=== PATIENT | male | born 1945 | race Caucasian/White ===

== ENCOUNTER → 2023-11-07 06:55 | Outpatient (REF) | payer MEDICARE, OTHER, SELFPAY ==
[2023-11-07] MEDS: LEXISCAN 0.400000000000000022 MG IV (08:44)
== END ==
LOC: RCS 06:55
PROVIDERS: ATTENDING PHYSICIAN Internal Medicine Cardiovascular Disease; FAMILY PHYSICIAN Family Medicine
DX: Z76.89 Persons encountering health services in other specified circumstances (principal); I25.10 Atherosclerotic heart disease of native coronary artery without angina pectoris; I25.84 Coronary atherosclerosis due to calcified coronary lesion; I10 Essential (primary) hypertension; R94.31 Abnormal electrocardiogram [ECG] [EKG]
CPT/HCPCS: 78452; 93017; A9500; J2785

== ENCOUNTER → 2023-11-08 10:39 | Outpatient (REF) | payer MEDICARE, OTHER, SELFPAY | LOC: RAD 10:39 | PROVIDERS: ATTENDING PHYSICIAN Specialist; FAMILY PHYSICIAN Family Medicine | DX: N20.0 Calculus of kidney (principal) | CPT/HCPCS: 76770 ==

== ENCOUNTER → 2023-12-02 13:38 | Outpatient (REF) | payer MEDICARE, OTHER, SELFPAY | LOC: DHCBC MAIN 13:38 | PROVIDERS: ATTENDING PHYSICIAN Internal Medicine Cardiovascular Disease; FAMILY PHYSICIAN Family Medicine | DX: Z76.89 Persons encountering health services in other specified circumstances (principal); I25.10 Atherosclerotic heart disease of native coronary artery without angina pectoris; I25.84 Coronary atherosclerosis due to calcified coronary lesion; I35.9 Nonrheumatic aortic valve disorder, unspecified; I10 Essential (primary) hypertension | CPT/HCPCS: 93306 ==

== ENCOUNTER 2025-06-07 16:13 | Inpatient (IN) | payer MEDICARE, OTHER, SELFPAY ==
[2025-06-06 13:47] VITALS: BP 166/85
--- NOTE | 2025-06-06 14:19 | ED.GENMED ---
History of Present Illness
<Marlo Neal Jr., PA-C - Last Filed: 06/06/25 19:02>
General
Chief Complaint: Musculo-Skeletal Complaint
Source: patient
Exam Limitations: none
Time Seen by Provider: 06/06/25 13:55
Nursing documentation reviewed up to this point in time: agreed with
History of Present Illness
History of Present Illness:
79-year-old male presenting to the emergency department today with concerns of right knee pain after twisting his knee walking just prior to arrival. Unable to ambulate afterward and came in by EMS. Denies any numbness weakness redness or warmth.
No fevers. Does have chronic knee pain.
Past History
<Marlo Neal Jr., PA-C - Last Filed: 06/06/25 19:02>
Past History
ED Past Medical History: Other (kidney stones); Negative HTN
ED Past Surgical History: Cholecystectomy
Social History
Tobacco: Former smoker
Alcohol: None
Drug: None
Personal:
Living: with family
Employment: Employed
Family History
Family History: Other
Review of Systems
<Marlo Neal Jr., PA-C - Last Filed: 06/06/25 19:02>
Review of Systems
Allergies reviewed?: Yes
All Other Systems: ROS reviewed and negative except as documented in HPI and ROS
Phy Exam
<Marlo Neal Jr., PA-C - Last Filed: 06/06/25 19:02>
Physical Exam
Physical Exam:
GENERAL: Alert , in no apparent distress
EYE: pupils equal and reactive
NECK: Supple, no significant adenopathy.
ENT: o/p clr, mmm.
CARDIAC: Regular rate and rhythm .
LUNGS: Clear breath sounds bilaterally, no acute respiratory distress, no wheezes/rales/rhonchi
ABDOMEN: Soft, without focal tenderness, no r/g, no cvat
NEUROLOGICAL: Alert and oriented, no focal neuro deficits
SKIN: Warm and dry, skin intact.
MUSCULOSKELETAL: Edema surrounding the right knee mainly to the suprapatellar region no redness or warmth does have good range of motion in general. No specific joint laxity.
PSYCH: Normal and appropriate interaction.
Course
<Marlo Neal Jr., PA-C - Last Filed: 06/06/25 19:02>
Orders/Labs/Results
Orders:
Orders
06/06/25 Lunch
Low Lactose
At Your Request: Full Participation
06/06/25 13:50
Knee, Right 4 or More Views [CR Knee- Right 4 Or More View*] Urgent
Comment:
Reason For Exam: pain
06/06/25 15:20
Knee Immobilizer Right-Treatme ONCE
Pt Eval And Treat Urgent
Activity Level: Ambulate
06/06/25 16:01
Case Management Consult ONCE
Case Management Consult: Discharge Planning
06/06/25 18:19
BMP [Basic Metabolic Panel] Urgent
CBC/With Diff [Complete Blood Count/With Diff] Routine
Abnormal Lab Results
06/06/25
18:19
RBC 4.60 L 10^6/uL
(4.70-6.10)
MCV 95.4 H fL
(80.0-94.0)
MCH 32.8 H pg
(27.0-31.0)
Absolute Neuts (auto) 8.1 H 10^3/uL
(1.4-6.5)
Absolute Lymphs (auto) 1.0 L 10^3/uL
(1.2-3.4)
Absolute Monos (auto) 0.8 H 10^3/uL
(0.1-0.6)
Neutrophils % 79.7 H %
(42.2-75.2)
Lymphocytes % 9.8 L %
(20.5-51.1)
BUN 25 H mg/dl
(9-20)
Glucose 102 H mg/dl
(70-99)
06/06/25 18:19
06/06/25 18:19
Vital Signs
Initial and Last Documented VS:
Initial Vital Signs
Temp Pulse Resp BP Pulse Ox
98.9 F 65 15 166/85 98
06/06/25 13:47 06/06/25 13:47 06/06/25 13:47 06/06/25 13:47 06/06/25 13:47
Last Documented Vital Signs
Temp Pulse Resp BP Pulse Ox
98.9 F 66 16 158/87 98
06/06/25 13:47 06/06/25 16:17 06/06/25 16:17 06/06/25 16:17 06/06/25 16:17
<Samira Collado MD - Last Filed: 06/06/25 18:36>
Orders/Labs/Results
Orders:
Orders
06/06/25 Lunch
Low Lactose
At Your Request: Full Participation
06/06/25 13:50
Knee, Right 4 or More Views [CR Knee- Right 4 Or More View*] Urgent
Comment:
Reason For Exam: pain
06/06/25 15:20
Knee Immobilizer Right-Treatme ONCE
Pt Eval And Treat Urgent
Activity Level: Ambulate
06/06/25 16:01
Case Management Consult ONCE
Case Management Consult: Discharge Planning
06/06/25 18:19
BMP [Basic Metabolic Panel] Urgent
CBC/With Diff [Complete Blood Count/With Diff] Routine
Abnormal Lab Results
06/06/25
18:19
RBC 4.60 L 10^6/uL
(4.70-6.10)
MCV 95.4 H fL
(80.0-94.0)
MCH 32.8 H pg
(27.0-31.0)
Absolute Neuts (auto) 8.1 H 10^3/uL
(1.4-6.5)
Absolute Lymphs (auto) 1.0 L 10^3/uL
(1.2-3.4)
Absolute Monos (auto) 0.8 H 10^3/uL
(0.1-0.6)
Neutrophils % 79.7 H %
(42.2-75.2)
Lymphocytes % 9.8 L %
(20.5-51.1)
BUN 25 H mg/dl
(9-20)
Glucose 102 H mg/dl
(70-99)
06/06/25 18:19
06/06/25 18:19
Vital Signs
Initial and Last Documented VS:
Initial Vital Signs
Temp Pulse Resp BP Pulse Ox
98.9 F 65 15 166/85 98
06/06/25 13:47 06/06/25 13:47 06/06/25 13:47 06/06/25 13:47 06/06/25 13:47
Last Documented Vital Signs
Temp Pulse Resp BP Pulse Ox
98.9 F 66 16 158/87 98
06/06/25 13:47 06/06/25 16:17 06/06/25 16:17 06/06/25 16:17 06/06/25 16:17
<Marlo Neal Jr., PA-C - Last Filed: 06/06/25 19:02>
MDM/Problems Addressed
MDM/Problems Addressed:
79-year-old male presenting to the emergency department with concerns of right knee pain after tripping and twisting his knee. Denies any trauma or falling afterward. Unable to ambulate since. Does have chronic knee pain otherwise. X-ray without
signs of fracture. Patient unable to ambulate seen by physical therapy who recommend potential placement.. Then patient seen by case management that was placed today requesting admission to monitored until potential placement tomorrow.
<Marlo Neal Jr., PA-C - Last Filed: 06/06/25 19:02>
*Pulse Oximetry
SaO2: 98
Oxygen Mode of Delivery: Room air
Patient hypoxic: no (98)
*Critical Care Note
Total Time (30-74mins, 75-104mins- exclusive of procedures): Not Applicable
ED Attending Note
<Marlo Neal Jr., PA-C - Last Filed: 06/06/25 19:02>
-
Portions of this chart may have been created with voice recognition software.� Occasional wrong word or��sound alike� substitutions may have occurred due to the inherent limitations of voice recognition software.
<Samira Collado MD - Last Filed: 06/06/25 18:36>
ED Attending Note
Patient seen and examined by attending physician: Yes
I performed the substantive portion of visit, reviewed & personally made and approve the management plan that is documented in note by myself or MAE.: Yes
ED Attending Note:
79-year-old male who presents to the emergency department with right knee pain after a trip and fall. X-ray here negative for fracture. Knee immobilizer placed, patient able to stand but has difficulty walking. Discussion with patient's neighbor
who brought him here, she states that since his 3 months ago he is having difficulty managing at home. Next of kin is in [place], his daughter. He has lost weight, has gone a few days without showering at a time, and leans on her
for assistance with test such as writing checks. She is concerned about his ability to manage at home alone. Patient seen by case management, can be placed but not until tomorrow, therefore will be an observation candidate overnight.
Discharge Plan
Departure
Patient Disposition: Home (Routine Discharge)
Date of Disposition: 06/06/25
Time of Disposition: 19:01
Patient with high blood pressure during this ER visit?: No
Condition: Good
Covid-19: Not Applicable
Discharge Problem:
Knee sprain, Ambulatory dysfunction
Prescriptions:
No Action
tamsulosin 0.4 mg Capsule
0.8 mg PO DAILY Qty: 30 1RF
amlodipine 5 mg Tablet
5 mg PO DAILY Qty: 30 1RF
Referrals:
Sanjeev Sapp, DO [Family Provider, Family Practice]
Interventions
Interventions:
*Risk Screen - Suicide Last Done: 06/06/25 13:47
*General Assessment Last Done: 06/06/25 13:47
*Neglect/Abuse Screening Last Done: 06/06/25 13:47
*ED- Fall Risk Assessment Last Done: 06/06/25 13:47
*ED COVID-19 Vaccine History Last Done: 06/06/25 13:47
*ED Influenza Vaccine History Last Done: 06/06/25 13:47
ED-Musculoskeletal Assessment Last Done: 06/06/25 15:37
Discharge Date and Time
Print Language: BELARUSIAN
[2025-06-06 16:17] VITALS: BP 158/87
--- NOTE | 2025-06-06 16:22 | CM ---
Addendum entered by Ileana Gr 06/06/25 16:29:
Patient is [facility] and would need hospitalist note with review by [facility] prior to acceptance. [place] is not participating facility at this time. Options are [facility] and [place]. CM will review with patient and confirm choice to send
referrals and work with [facility] for auth.
Original Note:
Patient seen in ED. Patient lives alone, recently . Patient lives in apartment with approx 24 steps to enter. Patient helps with the care of the building so does more steps than that. Patient is looking for resources to support at a
friends home but no friend has less than at least one flight of stairs. Patient did not want to call family as they are to far away was willing to have CM send referral to [place] pending review. CM will continue to follow for discharge planning
needs.
Plan; SNF; pending bed ability and coverage by insurance.
--- NOTE | 2025-06-06 16:48 | EDCM ---
Spoke with patient regarding [employer] waiver program . Pt not sure if he wants to go to one of 3 [facility] SNFs offered : [place], [facility] or [facility]. He wants to go to [place] which is close to him. Pt not able to go to one of his kids
for discharge. Reviewed [facility] with patient but patent declined to sign the form at this time. Spoke with his care team. Plan to keep him under OBS and refer to hospitalist service for follow up. CM to follow up for dcp needs
--- NOTE | 2025-06-06 18:15 | HPS.HSE ---
Family Physician
-
Family Physician: Sanjeev Sapp
Chief Complaint
-
Right knee pain
History of Present Illness
79M BPH HTN Knee osteoarthritis hx steroid injection 6 wks ago here for Acute on chronic knee pain with severe ambulatory dysfunction. Baseline ambulatory without need for assist device. 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 He felt
his right knee suddenly give out while walking on steps. Denied fall or trauma. Unable to ambulate or stand following event, prompting ed evaluation. Labs Vitals wnl unremarkable. 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
dislocation. PT eval recommended SNF rehab.
Medical History
Past Medical History
Past Medical History: Reports Other (as above)
Past Surgical History: Reports Other (as above)
Social History
Tobacco: Non-smoker
Alcohol: None
Drug: None
Personal: ( February 2025)
Living: Alone
Employment: Employed
Family History
Family History: Not pertinent (reviewed)
Allergies / Home Medications
Allergies reflects when Allergies were last updated in [employer].
Home Medications with original date entered in [employer]
Allergy/Medication List:
Allergies
Allergy/AdvReac Type Severity Reaction Status Date / Time
acetaminophen (From Percocet) Allergy Swelling Verified 06/06/25 13:47
lactose (Lactose) Allergy Unknown Verified 06/06/25 13:47
oxycodone HCl (From Percocet) Allergy Swelling Verified 06/06/25 13:47
Home Medications
amlodipine 5 mg tablet 5 mg PO DAILY #30 tabs 08/26/22
tamsulosin 0.4 mg capsule 0.8 mg (2 x 0.4 mg) PO DAILY #30 caps 08/26/22
Review of Systems
-
A 12 point ROS was completed and negative except as noted: Yes
Constitutional: Reports Other (as below)
Physical Exam
Vital Signs
Vital Signs
Temp Pulse Resp BP Pulse Ox
98.9 F 66 16 158/87 98
06/06/25 13:47 06/06/25 16:17 06/06/25 16:17 06/06/25 16:17 06/06/25 16:17
Physical Exam
General: Other (as below)
Impression/Plan
-
ROS
General: Denies fever chills night sweats unexpected weight loss
Neuro: Denies seizure shaking loss of consciousness dizziness vertigo
Psych: denies depression hallucinations confusion manic episodes
Endocrine: Denies polyuria polydipsia polyphagia heat/cold intolerance
HEENT: Denies blindness visual disturbances epistaxis
Pulmonary: denies coughing hemoptysis sneezing sob dyspnea on exertion
Cardiovascular: denies chest pain palpitations leg swelling
Hematology: denies signs symptoms of anemia easy bruising/bleeding
Gastrointestinal: denies nausea vomiting diarrhea constipation hematemesis hematochezia melena
Genito-Urinary: denies retention incontinence dysuria
Musculoskeletal: reports chronic joint pain knees b/l, severe right knee pain
Dermatology: denies rash laceration bruising
Physical Exam
General: No pallor, cyanosis, or jaundice.
HEENT: Throat clear. PERRLA Normocephalic atraumatic
NECK: Supple. No JVD Carotid Bruits
RESPIRATORY: Lungs clear to auscultation. No crackles wheezes stridor
CVS: S1, S2 normal. RRR. No murmur, rub or gallop.
ABDOMEN: Soft, non-tender. No distension. BS+/normal.
EXTREMITIES: No peripheral cyanosis or edema. Right knee immobilizer/brace in place
BLOWER BLAST FURNACE: AOx3. No focal deficits.
IMPRESSION:
79M BPH HTN Knee osteoarthritis hx steroid injection 6 wks ago here for Acute on chronic knee pain with severe ambulatory dysfunction. Baseline ambulatory without need for assist device. 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 He felt
his right knee suddenly give out while walking on steps. Denied fall or trauma. Unable to ambulate or stand following event, prompting ed evaluation. Labs Vitals wnl unremarkable. 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
dislocation. PT esther recommended SNF rehab.
PLAN:
Acute on Chronic Right Knee Pain w/ associate severe ambulatory dysfunction
-Obs med/surg
-PT eval appreciated SNF rehab
-case mgmt appreciated
-pain control prn Tylenol Tramadol
-maintain right knee brace/immobilizer
-fall precautions
- medically stable for discharge SNF rehab pending placement
Lactose intolerance
-low lactose diet
HTN
cont home Amlodipine w/ holding parameters
BPH
cont Flomax
DVT ppx Heparin
Full Code
I spent a total of 56 minutes with the patient or on the floor. More than 50% of this time involved counseling and coordination of care.
[2025-06-06 18:31] LABS: Hematocrit 43.9 % (39.0-52.0); Hemoglobin 15.1 g/dL (13.0-18.0); Mean Corp Hgb Conc. 34.4 g/dL (33.0-37.0); Mean Corpuscular Volume 95.4 fL (80.0-94.0); Nucleated Red Blood Cells % 0 % (-); Platelet Count 221 10^3/uL (130-400); Red Cell Dist. Width 13.3 % (11.5-14.5)
[2025-06-06 18:53] LABS: Blood Urea Nitrogen 25 mg/dl (9-20); Calcium 9.4 mg/dl (8.4-10.2); Carbon Dioxide 24 mmol/L (22-30); Chloride 107 mmol/L (98-107); Glucose 102 mg/dl (70-99); Sodium 137 mmol/L (135-145); eGFR 55.53
[2025-06-06 20:00] VITALS: BMI 26.0
[2025-06-06 20:08] VITALS: BP 174/80
[2025-06-06 20:24] VITALS: BP 161/93
[2025-06-06] MEDS: FLOMAX 0.8 MG PO (23:12)
[2025-06-06] MEDS: HEPARIN 5000 UNITS SC (23:13)
[2025-06-06 23:47] VITALS: BP 146/82
[2025-06-07 05:39] LABS: Hematocrit 43.5 % (39.0-52.0); Hemoglobin 14.2 g/dL (13.0-18.0); Mean Corp Hgb Conc. 32.6 g/dL (33.0-37.0); Mean Corpuscular Volume 99.8 fL (80.0-94.0); Platelet Count 186 10^3/uL (130-400); Red Cell Dist. Width 13.4 % (11.5-14.5)
[2025-06-07 06:10] LABS: Blood Urea Nitrogen 21 mg/dl (9-20); Calcium 9.3 mg/dl (8.4-10.2); Carbon Dioxide 27 mmol/L (22-30); Chloride 106 mmol/L (98-107); Estimated Creatinine Clearance 51 ml/min; Glucose 92 mg/dl (70-99); Magnesium 2.0 mg/dl (1.6-2.3); Potassium 4.1 mmol/L (3.5-5.1); Sodium 138 mmol/L (135-145); eGFR 55.53
[2025-06-07 07:24] VITALS: BP 141/82
--- NOTE | 2025-06-07 07:58 | W.PN.HOSP.TC ---
Today's Communication/Plan
-
check CT right knee
pain control, ice, and elevate
Physical Therapy
Assessment / Plan
Assessment / Plan
Physical Exam
General: No pallor, cyanosis, or jaundice.
HEENT: Throat clear. PERRLA Normocephalic atraumatic
NECK: Supple. No JVD Carotid Bruits
RESPIRATORY: Lungs clear to auscultation. No crackles wheezes stridor
CVS: S1, S2 normal. RRR. No murmur, rub or gallop.
ABDOMEN: Soft, non-tender. No distension. BS+/normal.
EXTREMITIES: No peripheral cyanosis or edema. Right knee immobilizer/brace in place. Right knee swollen tender
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 No focal deficits.
IMPRESSION:
79M BPH HTN Knee osteoarthritis hx steroid injection 6 wks ago here for Acute on chronic knee pain with severe ambulatory dysfunction. Baseline ambulatory without need for assist device. 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 He felt
his right knee suddenly give out while walking on steps. Denied fall or trauma. Unable to ambulate or stand following event, prompting ed evaluation. Labs Vitals wnl unremarkable. 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
dislocation. PT eval recommended SNF rehab.
PLAN:
Acute on Chronic Right Knee Pain w/ associate severe ambulatory dysfunction
-med/surg
-severe ambulatory dysfunction requiring 1 person assist w/ walker
-PT eval appreciated SNF rehab
-case mgmt appreciated
-pain control standing Tylenol prn Tramadol
-ice and elevate when at rest
-maintain right knee brace/immobilizer
-fall precautions
-check CT right knee
Lactose intolerance
-low lactose diet
HTN
cont home Amlodipine w/ holding parameters
BPH
cont Flomax
DVT ppx Heparin
Full Code
Discussed with patient and patient's daughter Consuelo
I spent a total of 47 minutes with the patient or on the floor. More than 50% of this time involved counseling and coordination of care.
Anticipated Discharge: 24 - 48 hours
Subjective/Interval History
-
Date of Service: June 07, 2025
No acute distress resting comfortably in bed. No pain at rest but Right knee more swollen tender compared to yesterday. Ambulation significantly impaired requiring 1 person assist with walker.
Objective Data
-
Labs:
Laboratory Results
06/07/25
05:04
WBC 8.4
Hgb 14.2
Hct 43.5
Plt Count 186
Sodium 138
Potassium 4.1
Chloride 106
Carbon Dioxide 27
BUN 21 H
Creatinine 1.3
Glucose 92
Calcium 9.3
Vital Signs:
Vital Signs
Temp Pulse Resp BP Pulse Ox
98.1 F 72 16 141/82 98
06/07/25 07:24 06/07/25 07:24 06/07/25 07:24 06/07/25 07:24 06/07/25 07:24
I&O
06/06/25 06/07/25 06/08/25
06:59 06:59 06:59
Intake Total 360 / 360
Output Total 850 / 850
Balance -490 / -490
[2025-06-07] MEDS: NORVASC 5 MG PO (08:51)
[2025-06-07] MEDS: HEPARIN 5000 UNITS SC ×2 (08:51→16:01)
--- NOTE | 2025-06-07 13:21 | CM ---
Addendum entered by Andie Reynolds 06/07/25 15:55:
Pt and daughter plan to appeal with [employer].
Addendum entered by Andie Reynolds 06/07/25 15:29:
Aviva reviewed the case with her team again, however SNF is still denied. Pt is agreeable to home care services and has [facility]. Referral sent via [facility].
Original Note:
AYESHA met with Gerry and his friend at bedside. Gerry is agreeable to SNF at discharge; [facility] waiver being utilized for SNF. Referrals sent to [facility], [facility] and [facility].
Call received from Aviva, Lexi Casemanager, who advised that SNF has been denied. I asked Aviva to review with her team that Gerry is recently , has 2 full flights of stairs to get to his home; and would benefit from SNF.
Plan: Await updates from [facility] liaison.
[2025-06-07 15:39] VITALS: BP 136/79
[2025-06-07] MEDS: TYLENOL 650 MG PO ×2 (16:00→22:18)
[2025-06-07] MEDS: TYLENOL PO (16:14)
[2025-06-07 16:49] VITALS: BP 137/81; PULSE 72
[2025-06-07] MEDS: FLOMAX 0.8 MG PO (22:18)
[2025-06-07 23:45] VITALS: BP 116/83
[2025-06-08] MEDS: HEPARIN SC (01:30)
[2025-06-08] MEDS: TYLENOL PO ×3 (01:30→14:01)
[2025-06-08 05:56] LABS: Hematocrit 42.2 % (39.0-52.0); Hemoglobin 13.9 g/dL (13.0-18.0); Mean Corp Hgb Conc. 32.9 g/dL (33.0-37.0); Mean Corpuscular Volume 95.9 fL (80.0-94.0); Platelet Count 208 10^3/uL (130-400); Red Cell Dist. Width 13.4 % (11.5-14.5)
[2025-06-08 06:17] LABS: Blood Urea Nitrogen 26 mg/dl (9-20); Calcium 9.0 mg/dl (8.4-10.2); Carbon Dioxide 26 mmol/L (22-30); Chloride 104 mmol/L (98-107); Estimated Creatinine Clearance 48 ml/min; Glucose 138 mg/dl (70-99); Magnesium 2.2 mg/dl (1.6-2.3); Potassium 3.8 mmol/L (3.5-5.1); Sodium 137 mmol/L (135-145); eGFR 50.81
--- NOTE | 2025-06-08 07:45 | W.PN.HOSP.TC ---
Today's Communication/Plan
-
Check Right Knee MRI
pain control
PT/OT
Abd Binder for Hernia
Assessment / Plan
Assessment / Plan
Physical Exam
General: No pallor, cyanosis, or jaundice.
HEENT: Throat clear. PERRLA Normocephalic atraumatic
NECK: Supple. No JVD Carotid Bruits
RESPIRATORY: Lungs clear to auscultation. No crackles wheezes stridor
CVS: S1, S2 normal. RRR. No murmur, rub or gallop.
ABDOMEN: Soft, non-tender. No distension. BS+/normal.
EXTREMITIES: No peripheral cyanosis or edema. Right knee immobilizer/brace in place. Right knee swollen tender
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 No focal deficits.
IMPRESSION:
79M BPH HTN Knee osteoarthritis hx steroid injection 6 wks ago here for Acute on chronic knee pain with severe ambulatory dysfunction. Baseline ambulatory without need for assist device. 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 He felt
his right knee suddenly give out while walking on steps. Denied fall or trauma. Unable to ambulate or stand following event, prompting ed evaluation. Labs Vitals wnl unremarkable. 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
dislocation. PT eval recommended SNF rehab.
PLAN:
Acute on Chronic Right Knee Pain w/ associate severe ambulatory dysfunction
-med/surg
-severe ambulatory dysfunction requiring 1 person assist w/ walker
-PT eval appreciated SNF rehab
-case mgmt appreciated
-pain control standing Tylenol prn Tramadol
-ice and elevate when at rest
-maintain right knee brace/immobilizer
-fall precautions
-CT right knee noted patella fx and effusion/hemarthrosis
-Orthopedic eval appreciated concern for possible quadriceps tendon tear/rupture, checking Right Knee MRI
Abd Hernia
Abd Binder, outpt follow up
Lactose intolerance
-low lactose diet
HTN
cont home Amlodipine w/ holding parameters
BPH
cont Flomax
DVT ppx Heparin
Full Code
Discussed with patient and patient's daughter Consuelo
I spent a total of 40 minutes with the patient or on the floor. More than 50% of this time involved counseling and coordination of care.
Anticipated Discharge: 24 - 48 hours
Subjective/Interval History
-
Date of Service: June 08, 2025
No acute distress, resting comfortably in bed, overall reports feeling well, pain well controlled at rest. Continues to have debilitating right knee pain when attempting standing or ambulation with walker.
Objective Data
-
Labs:
Laboratory Results
06/08/25
05:05
WBC 8.4
Hgb 13.9
Hct 42.2
Plt Count 208
Sodium 137
Potassium 3.8
Chloride 104
Carbon Dioxide 26
BUN 26 H
Creatinine 1.4 H
Glucose 138 H
Calcium 9.0
Vital Signs:
Vital Signs
Temp Pulse Resp BP Pulse Ox
98.1 F 70 18 116/83 96
06/07/25 23:45 06/07/25 23:45 06/07/25 23:45 06/07/25 23:45 06/07/25 23:45
I&O
06/07/25 06/08/25 06/09/25
06:59 06:59 06:59
Intake Total 360 / 360 1080 / 1080
Output Total 850 / 850 900 / 900
Balance -490 / -490 180 / 180
[2025-06-08 07:49] VITALS: BP 128/80
[2025-06-08] MEDS: HEPARIN 5000 UNITS SC ×2 (08:08→16:21)
[2025-06-08] MEDS: NORVASC 5 MG PO (08:09)
[2025-06-08] MEDS: TYLENOL 650 MG PO ×3 (08:09→21:10)
--- NOTE | 2025-06-08 12:53 | CON.ORTHO ---
Consultation
-
Date/Time Consultation Performed: 06/08/2025 1230 pm
Consultation - Orthopedics
History
79-year-old male community ambulator history of hypertension presented to the emergency department after feeling his right knee buckle on some stairs which ultimately caused difficulty with ambulation. He was admitted to the hospitalist service.
CT scan revealed minimally displaced vertical fracture of the lateral patella versus fractured osteophyte. Orthopedics is consulted for further evaluation and treatment. Patient is localizing pain this afternoon to the lateral and proximal aspects
of his right patella. When asked to identify where he is having most of his pain, he pointed to his distal thigh just proximal to the patella. He reports that he is unable to bear any weight. He reports that he lives alone. He reports that his
recently about 3 months ago. He has a history of remote tobacco smoking. 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 Does not use any assistive devices for ambulation. Of note he does have chronic right knee pain known right knee
osteoarthritis underwent corticosteroid injection about 6 weeks ago.
Allergies / Home Medications
Past medical history: Hypertension
Past surgical history: Cholecystectomy
Family history: Not pertinent
Social history: Lives alone, recently , former tobacco smoker
Allergy/AdvReac Type Severity Reaction Status Date / Time
acetaminophen (From Percocet) Allergy Swelling Verified 06/06/25 13:47
lactose (Lactose) Allergy Unknown Verified 06/06/25 13:47
oxycodone HCl (From Percocet) Allergy Swelling Verified 06/06/25 13:47
�Medication �Instructions �Recorded
amlodipine 5 mg tablet 5 mg PO DAILY #30 tabs 08/26/22
tamsulosin 0.4 mg capsule 0.8 mg (2 x 0.4 mg) PO DAILY #30 08/26/22
caps
Vital Signs / Lab Results
Temp Pulse Resp BP Pulse Ox
98.1 F 73 18 128/80 97
06/08/25 07:49 06/08/25 07:49 06/08/25 07:49 06/08/25 07:49 06/08/25 07:49
06/08/25 05:05
06/08/25 05:05
10 point review systems reviewed and negative unless otherwise stated
General: Pleasant, no acute distress
Musculoskeletal right lower extremity
Skin intact, no erythema or ecchymotic staining
Palpable knee effusion
Patient is unable to straight leg raise
There is tenderness palpation over lateral patella as well as the proximal pole the patella
There is somewhat of a palpable defect proximal pole of the patella at area of distal quadriceps insertion compared to contralateral extremity
No gross motor or sensory deficits distally
Diagnostic studies
X-rays right knee as well as CT scan right knee reveal a minimally displaced fracture vertical orientation versus fracture to osteophytes right patella
Assessment / Plan
79-year-old male right patella fracture versus osteophyte fracture with clinical concern for possible quadriceps tendon injury versus rupture. Given patient's clinical examination, would recommend obtaining an MRI of the right knee to further
evaluate for potential quadriceps tendon rupture. Patient may bear weight with the knee immobilizer and walker. Ultimate plan will be pending MRI. I did discuss with him that if he has a quadriceps tendon rupture, I would recommend surgical
intervention for this. If there is no quadriceps tendon rupture and this is only patella fracture, would not recommend any surgical intervention for his fracture pattern as he would be able to bear weight with a knee immobilizer in his leg and
complete extension. This was explained in detail to the patient as well as daughter at bedside. Please reach out any questions or concerns.
[2025-06-08 15:32] VITALS: BP 137/79
[2025-06-08] MEDS: FLOMAX 0.8 MG PO (21:10)
[2025-06-08] MEDS: MYLICON 80 MG PO (21:11)
[2025-06-08 23:00] VITALS: BP 125/76
--- NOTE | 2025-06-08 23:41 | PTCARENOTE ---
Oral care was not performed on patient because he stated that it was his preference to do his oral care in the morning.
[2025-06-09] MEDS: TYLENOL PO ×2 (00:32→04:50)
[2025-06-09] MEDS: HEPARIN SC (00:32)
--- NOTE | 2025-06-09 07:02 | W.PN.HOSP.TC ---
Today's Communication/Plan
-
see a/p
Assessment / Plan
Assessment / Plan
Physical Exam
General: No pallor, cyanosis, or jaundice.
HEENT: Throat clear. PERRLA Normocephalic atraumatic
NECK: Supple. No JVD Carotid Bruits
RESPIRATORY: Lungs clear to auscultation. No crackles wheezes stridor
CVS: S1, S2 normal. RRR. No murmur, rub or gallop.
ABDOMEN: Soft, non-tender. No distension. BS+/normal.
EXTREMITIES: No peripheral cyanosis or edema. Right knee immobilizer/brace in place. Right knee swollen tender
SOLAR PHOTOVOLTAIC CREW LEAD: AOx3. No focal deficits.
IMPRESSION:
79M BPH HTN Knee osteoarthritis hx steroid injection 6 wks ago here for Acute on chronic knee pain with severe ambulatory dysfunction. Baseline ambulatory without need for assist device. 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 He felt
his right knee suddenly give out while walking on steps. Denied fall or trauma. Unable to ambulate or stand following event, prompting ed evaluation. Labs Vitals wnl unremarkable. 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
dislocation. PT eval recommended SNF rehab.
PLAN:
Acute on Chronic Right Knee Pain w/ associate severe ambulatory dysfunction
-med/surg
-severe ambulatory dysfunction requiring 1 person assist w/ walker
-PT eval appreciated SNF rehab
-case mgmt appreciated
-pain control standing Tylenol prn Tramadol
-ice and elevate when at rest
-maintain right knee brace/immobilizer
-fall precautions
-CT right knee noted patella fx and effusion/hemarthrosis
-MRI noted quadriceps tendon tear, per discussion with Orthopedic, planned for OR repair 06/12
-Orthopedic eval appreciated
Abd Hernia
Abd Binder, outpt follow up
Lactose intolerance
-low lactose diet
HTN
cont home Amlodipine w/ holding parameters
BPH
cont Flomax
DVT ppx Heparin
Full Code
Discussed with patient and patient's daughter Consuelo
I spent a total of 37 minutes with the patient or on the floor. More than 50% of this time involved counseling and coordination of care.
Anticipated Discharge: > 48 hours
Subjective/Interval History
-
Date of Service: June 09, 2025
No acute distress, resting comfortably in bed. Overall reports feeling well. No new acute issues. Daughter Consuelo present during evaluation.
Objective Data
-
Vital Signs:
Vital Signs
Temp Pulse Resp BP Pulse Ox
98.4 F 66 16 125/76 95
06/08/25 23:00 06/08/25 23:00 06/08/25 23:00 06/08/25 23:00 06/08/25 23:00
I&O
06/08/25 06/09/25 06/10/25
06:59 06:59 06:59
Intake Total 1080 / 1080 1200 / 1200
Output Total 900 / 900 250 / 250
Balance 180 / 180 950 / 950
[2025-06-09 07:35] VITALS: BP 127/82
[2025-06-09] MEDS: HEPARIN 5000 UNITS SC ×2 (08:21→16:29)
[2025-06-09] MEDS: NORVASC 5 MG PO (08:22)
[2025-06-09] MEDS: TYLENOL 650 MG PO ×4 (08:22→21:18)
[2025-06-09 16:00] VITALS: BP 113/74
[2025-06-09] MEDS: FLOMAX 0.8 MG PO (21:19)
[2025-06-09 23:45] VITALS: BP 121/71
[2025-06-10] MEDS: HEPARIN SC (00:59)
[2025-06-10] MEDS: TYLENOL PO ×2 (00:59→05:39)
[2025-06-10 05:45] LABS: Hematocrit 44.0 % (39.0-52.0); Hemoglobin 14.1 g/dL (13.0-18.0); Mean Corp Hgb Conc. 32.0 g/dL (33.0-37.0); Mean Corpuscular Volume 98.9 fL (80.0-94.0); Platelet Count 230 10^3/uL (130-400); Red Cell Dist. Width 13.4 % (11.5-14.5)
[2025-06-10 06:06] LABS: Blood Urea Nitrogen 24 mg/dl (9-20); Calcium 8.9 mg/dl (8.4-10.2); Carbon Dioxide 29 mmol/L (22-30); Chloride 103 mmol/L (98-107); Estimated Creatinine Clearance 48 ml/min; Glucose 101 mg/dl (70-99); Potassium 4.4 mmol/L (3.5-5.1); Sodium 138 mmol/L (135-145); eGFR 50.81
[2025-06-10 07:40] VITALS: BP 133/79
[2025-06-10] MEDS: TYLENOL 650 MG PO ×4 (07:54→20:50)
[2025-06-10] MEDS: HEPARIN 5000 UNITS SC ×2 (07:54→16:17)
[2025-06-10] MEDS: NORVASC 5 MG PO (07:54)
--- NOTE | 2025-06-10 08:51 | W.PN.HOSP.TC ---
Today's Communication/Plan
-
NPO after midnight for surgical repair quadriceps tendon tear
pt at low risk for complications surgical intervention as above, risk is not prohibitive
Assessment / Plan
Assessment / Plan
Physical Exam
General: No pallor, cyanosis, or jaundice.
HEENT: Throat clear. PERRLA Normocephalic atraumatic
NECK: Supple. No JVD Carotid Bruits
RESPIRATORY: Lungs clear to auscultation. No crackles wheezes stridor
CVS: S1, S2 normal. RRR. No murmur, rub or gallop.
ABDOMEN: Soft, non-tender. No distension. BS+/normal.
EXTREMITIES: No peripheral cyanosis or edema. Right knee immobilizer/brace in place. Right knee swollen tender
GANG SUPERVISOR PIPE LINES: AOx3. No focal deficits.
IMPRESSION:
79M BPH HTN Knee osteoarthritis hx steroid injection 6 wks ago here for Acute on chronic knee pain with severe ambulatory dysfunction. Baseline ambulatory without need for assist device. 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 He felt
his right knee suddenly give out while walking on steps. Denied fall or trauma. Unable to ambulate or stand following event, prompting ed evaluation. Labs Vitals wnl unremarkable. 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
dislocation. PT eval recommended SNF rehab.
PLAN:
Acute on Chronic Right Knee Pain w/ associate severe ambulatory dysfunction
-med/surg
-severe ambulatory dysfunction requiring 1 person assist w/ walker
-PT eval appreciated SNF rehab
-case mgmt appreciated
-pain control standing Tylenol prn Tramadol
-ice and elevate when at rest
-maintain right knee brace/immobilizer
-fall precautions
-CT right knee noted patella fx and effusion/hemarthrosis
-MRI noted quadriceps tendon tear
-Orthopedic eval appreciated planned for OR repair 06/11, npo after midnight
-pt at low risk for complications surgical intervention as above, risk is not prohibitive
Abd Hernia
Abd Binder, outpt follow up
Lactose intolerance
-low lactose diet
HTN
cont home Amlodipine w/ holding parameters
BPH
cont Flomax
DVT ppx Heparin Hold started Evening 06/10 in preparation for surgical intervention 06/11 as above
Full Code
I spent a total of 38 minutes with the patient or on the floor. More than 50% of this time involved counseling and coordination of care.
Anticipated Discharge: 24 - 48 hours
Subjective/Interval History
-
Date of Service: June 10, 2025
No acute distress, resting comfortably in bed, denies new acute issues. Pain well controlled at rest.
Objective Data
-
Labs:
Laboratory Results
06/10/25
05:04
WBC 8.2
Hgb 14.1
Hct 44.0
Plt Count 230
Sodium 138
Potassium 4.4
Chloride 103
Carbon Dioxide 29
BUN 24 H
Creatinine 1.4 H
Glucose 101 H
Calcium 8.9
Vital Signs:
Vital Signs
Temp Pulse Resp BP Pulse Ox
97.9 F 72 16 133/79 95
06/10/25 07:40 06/10/25 07:54 06/10/25 07:40 06/10/25 07:54 06/10/25 07:40
I&O
06/09/25 06/10/25 06/11/25
06:59 06:59 06:59
Intake Total 1200 / 1200 2240 / 2240
Output Total 250 / 250 1550 / 1550
Balance 950 / 950 690 / 690
--- NOTE | 2025-06-10 11:04 | PTCARENOTE ---
New red rash observed on patient back, red, raised, circular welts. MD made aware, new order provided, see MAR. Will continue to monitor.
[2025-06-10] MEDS: DESENEX/MITRAZOL/ZEASORB 1 APPLIC TOPICAL ×2 (12:33→20:50)
[2025-06-10] MEDS: BENADRYL 25 MG PO ×2 (12:33→21:41)
[2025-06-10 16:00] VITALS: BP 140/79
--- NOTE | 2025-06-10 17:01 | W.PN.UPDATE ---
Update Note
Progress Note Update
Patient seen this evening. Discussed consistent with complete rupture of right quadriceps tendon. We discussed postsurgical nonsurgical options. After discussion mutually did proceed with surgical intervention. We discussed risks benefits and
alternatives to surgery. We discussed the usual and expected perioperative postoperative course. No guarantees were given. After discussion verbal consent was obtained. Will plan to obtain written informed consent prior to the OR tomorrow.
Weightbearing as tolerated right lower extremity in knee immobilizer
Pain control
N.p.o. at midnight
Please hold anticoagulation in preparation for OR
Medical management per primary team
Plan: 2 OR tomorrow for right quadriceps tendon repair pending or availability of medical clearance
[2025-06-10] MEDS: MYLICON 80 MG PO (20:51)
[2025-06-10] MEDS: FLOMAX 0.8 MG PO (21:00)
[2025-06-10 22:43] VITALS: BP 125/76
[2025-06-11] MEDS: TYLENOL PO ×5 (00:21→15:21)
[2025-06-11 05:42] LABS: Hematocrit 43.3 % (39.0-52.0); Hemoglobin 14.3 g/dL (13.0-18.0); Mean Corp Hgb Conc. 33.0 g/dL (33.0-37.0); Mean Corpuscular Volume 96.4 fL (80.0-94.0); Platelet Count 251 10^3/uL (130-400); Red Cell Dist. Width 13.4 % (11.5-14.5)
[2025-06-11 06:05] LABS: Blood Urea Nitrogen 29 mg/dl (9-20); Calcium 9.1 mg/dl (8.4-10.2); Carbon Dioxide 27 mmol/L (22-30); Chloride 104 mmol/L (98-107); Estimated Creatinine Clearance 51 ml/min; Glucose 120 mg/dl (70-99); Potassium 4.2 mmol/L (3.5-5.1); Sodium 138 mmol/L (135-145); eGFR 55.53
--- NOTE | 2025-06-11 08:11 | W.PN.HOSP.TC ---
Today's Communication/Plan
-
NPO for OR quadriceps tender repair as per orthopedic
Assessment / Plan
Assessment / Plan
Physical Exam
General: No pallor, cyanosis, or jaundice.
HEENT: Throat clear. PERRLA Normocephalic atraumatic
NECK: Supple. No JVD Carotid Bruits
RESPIRATORY: Lungs clear to auscultation. No crackles wheezes stridor
CVS: S1, S2 normal. RRR. No murmur, rub or gallop.
ABDOMEN: Soft, non-tender. No distension. BS+/normal.
skin: small maculopapular rashes dotting back
EXTREMITIES: No peripheral cyanosis or edema. Right knee immobilizer/brace in place. Right knee swollen tender
CLINICAL PROJECT LEADER: AOx3. No focal deficits.
IMPRESSION:
79M BPH HTN Knee osteoarthritis hx steroid injection 6 wks ago here for Acute on chronic knee pain with severe ambulatory dysfunction. Baseline ambulatory without need for assist device. 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 He felt
his right knee suddenly give out while walking on steps. Denied fall or trauma. Unable to ambulate or stand following event, prompting ed evaluation. Labs Vitals wnl unremarkable. 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
dislocation. PT eval recommended SNF rehab.
PLAN:
Acute on Chronic Right Knee Pain w/ associate severe ambulatory dysfunction
-med/surg
-severe ambulatory dysfunction requiring 1 person assist w/ walker
-PT eval appreciated SNF rehab
-case mgmt appreciated
-pain control standing Tylenol prn Tramadol
-ice and elevate when at rest
-maintain right knee brace/immobilizer
-fall precautions
-CT right knee noted patella fx and effusion/hemarthrosis
-MRI noted quadriceps tendon tear
-Orthopedic eval appreciated planned for OR repair today 06/11 Tues, npo
-pt at low risk for complications surgical intervention as above, risk is not prohibitive
Bed rash
-desenex powder
-calamine lotion prn
-benadryl prn
Abd Hernia
Abd Binder, outpt follow up
Lactose intolerance
-low lactose diet
HTN
cont home Amlodipine w/ holding parameters
BPH
cont Flomax
DVT ppx Heparin Hold started Evening 06/10 in preparation for surgical intervention 06/11 as above
Full Code
I spent a total of 38 minutes with the patient or on the floor. More than 50% of this time involved counseling and coordination of care.
Anticipated Discharge: 24 - 48 hours
Subjective/Interval History
-
Date of Service: June 11, 2025
Seen and examined at bedside in no acute distress resting comfortably in bed. Denies new acute issues. Pain well controlled at this time. Daughter Consuelo present during evaluation.
Objective Data
-
Labs:
Laboratory Results
06/11/25
05:08
WBC 7.4
Hgb 14.3
Hct 43.3
Plt Count 251
Sodium 138
Potassium 4.2
Chloride 104
Carbon Dioxide 27
BUN 29 H
Creatinine 1.3
Glucose 120 H
Calcium 9.1
Vital Signs:
Vital Signs
Temp Pulse Resp BP Pulse Ox
97.8 F 67 17 125/76 96
06/10/25 22:43 06/10/25 22:43 06/10/25 22:43 06/10/25 22:43 06/10/25 22:43
I&O
06/10/25 06/11/25 06/12/25
06:59 06:59 06:59
Intake Total 2240 / 2240 720 / 720
Output Total 1550 / 1550 1425 / 1425
Balance 690 / 690 -705 / -705
[2025-06-11 08:14] VITALS: BP 127/86
[2025-06-11] MEDS: NORVASC PO (09:29)
[2025-06-11] MEDS: DESENEX/MITRAZOL/ZEASORB 1 APPLIC TOPICAL ×2 (09:33→21:26)
--- NOTE | 2025-06-11 12:11 | CM ---
Pt to go to OR today for right quadriceps tendon repair.
Plan: CM to discuss SNF options with patient for discharge pending post-op status.
--- NOTE | 2025-06-11 12:26 | PTOTSP ---
Reviewed chart and noted pt for OR today for right quad tendon repair soon. Will need new orders for PT and OT post-op.
[2025-06-11 15:00] VITALS: BP 127/76
[2025-06-11 16:55] VITALS: BP 127/86
--- NOTE | 2025-06-11 17:03 | OR.RPT ---
Operative Report
Operative Report
Date
06/11/2025
Anesthesia Type:
General
Operative Indications:
Right quad tendon rupture
Operative Findings :
Right quad tendon rupture, complete with osteophyte fracture that was excised
Complications:
None
Implants:
None
Procedure and Technique:
Right quad tendon repair
INDICATIONS FOR PROCEDURE:
Patient is an active 79-year-old male who sustained a buckling injury to his right knee while descending stairs. He was admitted to the hospitalist service. Ultimately was diagnosed with a complete right quadriceps tendon rupture. We discussed
with surgical nonsurgical options. After discussion we mutually elected to agree with surgical intervention. We discussed risks benefits and alternatives to surgery. Discussed the usual and expected perioperative postoperative course. No
guarantees were given. After discussion written informed consent was obtained.
OPERATIVE PROCEDURE:
Patient was seen identified the preoperative holding area. Upper extremities marked. All questions were addressed and answered. He was taken to the operating room where general anesthesia was administered. Nonsterile tourniquet was applied.
Operative extremity was then prepped and draped in normal sterile fashion. Timeout was performed again identifying the correct operative extremity. Preoperative antibiotics were addressed. Tourniquet was inflated. standard anterior approach to
the knee was taken. Flaps were raised. The complete quad tendon rupture was identified. Unhealthy tendon remnant was sharply excised with Angel scissors. There was noted to be somewhat of a delaminated tear. The proximal pole of the patella was
identified and soft tissue was cleared from the bone. Bone was prepared with a rongeur and curette. Utilizing #5 Ethibond suture. 2 sutures were placed through the tendon remnant in a Krak�w fashion paying attention to capture the delaminated
tear.. 3 parallel drill holes were then placed through the patella. With an incomplete extension, the quad tendon was then repaired through these transosseous tunnels. There was noted to be a fractured lateral osteophyte that was excised. Knee
was flexed about 90 degrees and repair was found to be quite stable. Retinacular tissue was repaired in an interrupted fashion with #1 Vicryl suture. Tourniquet was deflated and hemostasis was achieved with electrocautery. Wound was then closed
in layered fashion utilizing 2-0 Vicryl for subcutaneous layer evelyn for skin. Sterile dressings were applied consisting of Xeroform, 4 x 4 gauze, ABD Webril Yohan bandage. Patient was placed in a knee immobilizer. Anesthesia was reversed patient
was taken to PACU in stable condition. Postoperative plans include weightbearing to patient's tolerance operative extremity with knee immobilizer keeping the right leg in complete extension. Recommend DVT prophylaxis consisting of Lovenox x 28
days. Plan to see patient back in 2 weeks for repeat clinical assessment initiation of physical therapy.
Disposition:
PACU stable condition
[2025-06-11] MEDS: DILAUDID 0.25 MG IV ×4 (17:07→22:12)
[2025-06-11 18:20] VITALS: BP 138/87
[2025-06-11] MEDS: NSS 1000 IV (18:25)
[2025-06-11] MEDS: COLACE 100 MG PO (21:25)
[2025-06-11] MEDS: TYLENOL 650 MG PO (21:26)
[2025-06-11] MEDS: FLOMAX 0.8 MG PO (22:07)
[2025-06-11] MEDS: DILAUDID IV (22:09)
[2025-06-11 22:46] VITALS: BP 124/82
[2025-06-12] MEDS: ANCEF 5 IV ×2 (00:16→09:00)
[2025-06-12] MEDS: DILAUDID 0.25 MG IV ×4 (00:18→20:09)
[2025-06-12] MEDS: TYLENOL PO ×2 (00:20→04:47)
[2025-06-12 03:02] VITALS: BP 113/74
[2025-06-12] MEDS: NSS 1000 IV (04:46)
[2025-06-12 05:35] LABS: Hematocrit 43.2 % (39.0-52.0); Hemoglobin 13.9 g/dL (13.0-18.0); Mean Corp Hgb Conc. 32.2 g/dL (33.0-37.0); Mean Corpuscular Volume 100.2 fL (80.0-94.0); Platelet Count 235 10^3/uL (130-400); Red Cell Dist. Width 13.5 % (11.5-14.5)
[2025-06-12 06:01] LABS: Blood Urea Nitrogen 29 mg/dl (9-20); Calcium 8.7 mg/dl (8.4-10.2); Carbon Dioxide 25 mmol/L (22-30); Chloride 104 mmol/L (98-107); Estimated Creatinine Clearance 48 ml/min; Glucose 127 mg/dl (70-99); Potassium 4.8 mmol/L (3.5-5.1); Sodium 134 mmol/L (135-145); eGFR 50.81
[2025-06-12 07:31] VITALS: BP 121/73
[2025-06-12] MEDS: NORVASC 5 MG PO (09:01)
[2025-06-12] MEDS: COLACE 100 MG PO ×2 (09:01→20:10)
[2025-06-12] MEDS: TYLENOL 650 MG PO ×4 (09:01→20:10)
[2025-06-12] MEDS: LOVENOX 40 MG SC (09:06)
[2025-06-12] MEDS: DESENEX/MITRAZOL/ZEASORB 1 APPLIC TOPICAL ×2 (09:07→20:11)
[2025-06-12 09:34] VITALS: BP 116/56; BP 133/73; PULSE 69; PULSE 79; O2SAT 97; O2SAT 99
--- NOTE | 2025-06-12 12:55 | W.PN.HOSP.TC ---
Today's Communication/Plan
-
await placement
post op pain control
activity as per ortho
SNF-CM aware
Assessment / Plan
Assessment / Plan
Physical Exam
General: No pallor, cyanosis, or jaundice.
HEENT: Throat clear. Normocephalic atraumatic
NECK: Supple. No JVD Carotid Bruits
RESPIRATORY: Lungs clear to auscultation. No crackles wheezes stridor
CVS: S1, S2 normal. RRR. No murmur, rub or gallop.
ABDOMEN: Soft, non-tender. No distension. BS+/normal.
skin: small maculopapular rashes dotting back
EXTREMITIES: No peripheral cyanosis or edema. Right knee immobilizer/brace in place. Right knee swollen tender
CRYOGENICS ENGINEER: AOx3. No focal deficits.
IMPRESSION:
79M BPH HTN Knee osteoarthritis hx steroid injection 6 wks ago here for Acute on chronic knee pain with severe ambulatory dysfunction. Baseline ambulatory without need for assist device. 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 He felt
his right knee suddenly give out while walking on steps. Denied fall or trauma. Unable to ambulate or stand following event, prompting ed evaluation. Labs Vitals wnl unremarkable. 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
dislocation. PT eval recommended SNF rehab.
PLAN:
Acute on Chronic Right Knee Pain w/ associate severe ambulatory dysfunction
Right quad tendon rupture
-severe ambulatory dysfunction requiring 1 person assist w/ walker
-Post op PT eval appreciated SNF rehab
-case mgmt appreciated
-pain control. Weight bearing as tolerated
-ice and elevate when at rest
-maintain right knee brace/immobilizer
-fall precautions
-CT right knee noted patella fx and effusion/hemarthrosis
-MRI noted quadriceps tendon tear
-Orthopedic eval appreciated for Right quad tendon rupture, complete with osteophyte fracture that was excised s/p Right tendor repair.
Bed rash
-desenex powder
-calamine lotion prn
-benadryl prn
Abd Hernia
Abd Binder, outpt follow up
Lactose intolerance
-low lactose diet
HTN
cont home Amlodipine w/ holding parameters
BPH
cont Flomax
DVT ppx lovenox
Full Code
Anticipated Discharge: Within 24 hours
Subjective/Interval History
-
Date of Service: June 12, 2025
states of R posterior knee pain at surgical site
worked with PT earlier today
Objective Data
-
Labs:
Laboratory Results
06/12/25
05:03
WBC 11.5 H
Hgb 13.9
Hct 43.2
Plt Count 235
Sodium 134 L
Potassium 4.8
Chloride 104
Carbon Dioxide 25
BUN 29 H
Creatinine 1.4 H
Glucose 127 H
Calcium 8.7
Vital Signs:
Vital Signs
Temp Pulse Resp BP Pulse Ox
97.8 F 79 18 133/93 97
06/12/25 07:31 06/12/25 09:01 06/12/25 07:31 06/12/25 09:01 06/12/25 07:31
I&O
06/11/25 06/12/25 06/13/25
06:59 06:59 06:59
Intake Total 720 / 720 820 / 820
Output Total 1425 / 1425 550 / 550
Balance -705 / -705 270 / 270
--- NOTE | 2025-06-12 14:10 | CM ---
CM continues to follow for discharge planning. Pt is waiting to speak with the orthopedic surgeon.
Bed available at [facility] today, however pt would like to go to [place] [facility] where his had been. Referral sent to [facility]; no bed available today, however [facility] (admissions) is checking with the social media job [employer] to determine if/when a bed will be
available.
Plan: Discharge to SNF pending discharge order and bed availability.
--- NOTE | 2025-06-12 14:28 | W.PN.ORTHO ---
Today's Communication / Plan
-
79-year-old male now postop day 1 status post right quad tendon repair doing well
Weightbearing as tolerated right lower extremity in knee immobilizer
PT OT-no range of motion to the knee until follow-up
Pain control
Medical management per primary team
DVT prophylaxis: Recommend Lovenox x 28 days for DVT prophylaxis
Plan to follow-up outpatient with myself 2 weeks repeat clinical assessment
Subjective
.
.:
Patient resting comfortably in bed this afternoon. Reports that he did have some pain in the area of surgical incision with ambulation today however.
Vital Signs and Labs
.
Vital Signs and Labs:
Lab Results
06/12/25 05:03
06/12/25 05:03
Temp Pulse Resp BP Pulse Ox
97.8 F 79 18 133/93 97
06/12/25 07:31 06/12/25 09:01 06/12/25 07:31 06/12/25 09:01 06/12/25 07:31
Physical Exam
-
Musculoskeletal right lower extremity
Dressings clean dry and intact
Motor and sensation grossly tact distally
Brisk cap refill
[2025-06-12 15:02] VITALS: BP 129/79
[2025-06-12] MEDS: FLOMAX 0.8 MG PO (22:53)
[2025-06-12 23:21] VITALS: BP 144/84
[2025-06-13] MEDS: TYLENOL PO ×2 (00:12→04:36)
[2025-06-13 05:39] LABS: Hematocrit 42.4 % (39.0-52.0); Hemoglobin 13.8 g/dL (13.0-18.0); Mean Corp Hgb Conc. 32.5 g/dL (33.0-37.0); Mean Corpuscular Volume 99.5 fL (80.0-94.0); Platelet Count 231 10^3/uL (130-400); Red Cell Dist. Width 13.4 % (11.5-14.5)
[2025-06-13 06:08] LABS: Blood Urea Nitrogen 22 mg/dl (9-20); Calcium 8.7 mg/dl (8.4-10.2); Carbon Dioxide 29 mmol/L (22-30); Chloride 103 mmol/L (98-107); Estimated Creatinine Clearance 51 ml/min; Glucose 101 mg/dl (70-99); Potassium 4.0 mmol/L (3.5-5.1); Sodium 134 mmol/L (135-145); eGFR 55.53
[2025-06-13 07:23] VITALS: BP 150/83
[2025-06-13] MEDS: LOVENOX 40 MG SC (08:59)
[2025-06-13] MEDS: TYLENOL 1000 MG PO ×2 (09:00→15:39)
[2025-06-13] MEDS: NORVASC 5 MG PO (09:00)
[2025-06-13] MEDS: COLACE 100 MG PO (09:01)
[2025-06-13] MEDS: DESENEX/MITRAZOL/ZEASORB 1 APPLIC TOPICAL (09:03)
--- NOTE | 2025-06-13 11:25 | W.PN.HOSP.TC ---
Today's Communication/Plan
-
await placement
lovenox dvt ppx
pain control
Assessment / Plan
Assessment / Plan
Physical Exam
General: No pallor, cyanosis, or jaundice.
HEENT: Throat clear. Normocephalic atraumatic
NECK: Supple. No JVD Carotid Bruits
RESPIRATORY: Lungs clear to auscultation. No crackles wheezes stridor
CVS: S1, S2 normal. RRR. No murmur, rub or gallop.
ABDOMEN: Soft, non-tender. No distension. BS+/normal.
skin: small maculopapular rashes dotting back
EXTREMITIES: No peripheral cyanosis or edema. Right knee immobilizer/brace in place. Right knee swollen tender
MEDICAL TECHNOLOGIST MICROBIOLOGY: AOx3. No focal deficits.
IMPRESSION:
79M BPH HTN Knee osteoarthritis hx steroid injection 6 wks ago here for Acute on chronic knee pain with severe ambulatory dysfunction. Baseline ambulatory without need for assist device. 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 He felt
his right knee suddenly give out while walking on steps. Denied fall or trauma. Unable to ambulate or stand following event, prompting ed evaluation. Labs Vitals wnl unremarkable. 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
dislocation. PT eval recommended SNF rehab.
PLAN:
Acute on Chronic Right Knee Pain w/ associate severe ambulatory dysfunction
Right quad tendon rupture
-severe ambulatory dysfunction requiring 1 person assist w/ walker
-Post op PT eval appreciated SNF rehab
-case mgmt appreciated
-pain control. Weight bearing as tolerated
-ice and elevate when at rest
-maintain right knee brace/immobilizer
-fall precautions
-CT right knee noted patella fx and effusion/hemarthrosis
-MRI noted quadriceps tendon tear
-Orthopedic eval appreciated for Right quad tendon rupture, complete with osteophyte fracture that was excised s/p Right tendor repair. Also recs Lovenox for dvt ppx.
Bed rash
-desenex powder
-calamine lotion prn
-benadryl prn
Abd Hernia
Abd Binder, outpt follow up
Lactose intolerance
-low lactose diet
HTN
cont home Amlodipine w/ holding parameters
BPH
cont Flomax
DVT ppx lovenox
Full Code
PT/OT recs SNF. CM aware. medically stable for dc.
Anticipated Discharge: Today
Subjective/Interval History
-
Date of Service: June 13, 2025
states pain better today
Objective Data
-
Labs:
Laboratory Results
06/13/25
05:04
WBC 8.5
Hgb 13.8
Hct 42.4
Plt Count 231
Sodium 134 L
Potassium 4.0
Chloride 103
Carbon Dioxide 29
BUN 22 H
Creatinine 1.3
Glucose 101 H
Calcium 8.7
Vital Signs:
Vital Signs
Temp Pulse Resp BP Pulse Ox
97.9 F 65 17 150/83 97
06/13/25 07:23 06/13/25 07:23 06/13/25 07:23 06/13/25 07:23 06/13/25 07:23
I&O
06/12/25 06/13/25 06/14/25
06:59 06:59 06:59
Intake Total 820 / 820 1320 / 1320
Output Total 550 / 550 1200 / 1200
Balance 270 / 270 120 / 120
--- NOTE | 2025-06-13 12:30 | CM ---
Addendum entered by Andie Reynolds 06/13/25 12:31:
Pt is cleared for discharge to SNF today. [facility] does not have a bed available for today; Pt agreeable to transfer to [facility]. Referral sent to [facility] and pt has been accepted for transfer today. TT to Dr. Landa to make him aware.
Ambulance transport to be arranged for transfer to [facility].
[facility] Report: [phone]
[facility]
Original Note:
Pt is cleared for discharge to SNF today. [facility] does not have a bed available for tod
--- NOTE | 2025-06-13 12:56 | W.DCSUMMARY ---
Discharge Summary
Discharge Data
Date of Admission: 06/07/25
Date of Discharge: 06/13/25
-
Pending Results: No
Hospital Course
79M BPH HTN Knee osteoarthritis hx steroid injection 6 wks ago here for Acute on chronic knee pain with severe ambulatory dysfunction. Baseline ambulatory without need for assist device. 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 He felt
his right knee suddenly give out while walking on steps. Denied fall or trauma. Unable to ambulate or stand following event, prompting ed evaluation. Labs Vitals wnl unremarkable. 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
dislocation. Underwent CT and MRI. MRI of the lower extremity showed quadriceps tendon tear. Orthopedic was consulted and patient underwent right tendon repair. Postop patient did well. Patient was eval by physical and Occupational Therapy and
they continue to recommend rehab. Pain was controlled. Orthopedic recommended Lovenox for DVT prophylaxis. Patient be discharged to long-term facility with recommendation to follow-up outpatient with orthopedic for postop follow-up.
Discharge Plan
-
Patient Disposition: Longterm/SNF
Discharge Diagnosis/Procedures: Acute on Chronic Right Knee Pain w/ associate severe ambulatory dysfunction
Right quad tendon rupture s/p Right tendor repair.
Condition: Fair
Diet: As tolerated
Activity: Other activity
Additional Activity: Weightbearing as tolerated right lower extremity in knee immobilizer
PT OT-no range of motion to the knee until follow-up
Driving Restrictions: No driving
Activity Restrictions/Additional Instructions:
DVT prophylaxis: Recommend Lovenox x 28 days for DVT prophylaxis
Referrals:
Sanjeev Sapp DO [Family Provider, Family Practice] - in less than 1 week
Referral Note: Discussed with the primary doctor about abdominal hernia.
Luis Garcia MD [Active, Orthopedics] - in two weeks
Referral Note: call to make appt-Post op f/u
Prescriptions:
New
acetaminophen [Tylenol Extra Strength] 500 mg Tablet
1,000 mg PO TID Qty: 30 0RF
enoxaparin 40 mg/0.4 mL Syringe
40 mg SC DAILY 26 Days Qty: 10.4 0RF
tramadol 50 mg Tablet
25 mg PO Q6HPRN PRN (Reason: moderate severe pain) Qty: 12 0RF
Continued
tamsulosin 0.4 mg Capsule
0.8 mg PO DAILY Qty: 30 1RF
amlodipine 5 mg Tablet
5 mg PO DAILY Qty: 30 1RF
Discharge Orders:
Discharge Patient (As Directed); Ordered 06/13/25
Ordered By: Jose Landa
Discharge Date and Time
Print Language: HEBREW
[2025-06-13 15:17] VITALS: BP 134/79
== END 2025-06-13 18:16 | DRG 501 ==
LOC: 3 WEST ACU 16:13
PROVIDERS: Physician Assistant; ADMITTING PHYSICIAN Internal Medicine; ATTENDING PHYSICIAN Hospitalist; CONSULT PHYSICIAN Orthopaedic Surgery; EMERGENCY PHYSICIAN Emergency Medicine; FAMILY PHYSICIAN Family Medicine
PROC: 0LML0ZZ Reattachment of Right Upper Leg Tendon, Open Approach (ICD-10-PCS; 2025-06-11)
DX: S76.111A Strain of right quadriceps muscle, fascia and tendon, initial encounter (principal); S82.001A Unspecified fracture of right patella, initial encounter for closed fracture; Z60.2 Problems related to living alone; Z63.4 Disappearance and death of family member; Z87.891 Personal history of nicotine dependence; I10 Essential (primary) hypertension; N40.0 Benign prostatic hyperplasia without lower urinary tract symptoms; Z75.1 Person awaiting admission to adequate facility elsewhere; E73.9 Lactose intolerance, unspecified; G89.29 Other chronic pain; M17.11 Unilateral primary osteoarthritis, right knee; W01.0XXA Fall on same level from slipping, tripping and stumbling without subsequent striking against object, initial encounter
CPT/HCPCS: 70030; 73564; 73700; 73721; 80048; 83735; 84100; 85025; 85027; 97164; 97167; 97530; 99285

== ENCOUNTER → 2025-06-15 16:55 | Outpatient (REF) | payer MEDICARE, OTHER, SELFPAY | LOC: OLAB 16:55 | PROVIDERS: ATTENDING PHYSICIAN Family Medicine | DX: M25.361 Other instability, right knee (principal); S76.119D Strain of unspecified quadriceps muscle, fascia and tendon, subsequent encounter; R26.2 Difficulty in walking, not elsewhere classified; S83 Dislocation and sprain of joints and ligaments of knee; K46.9 Unspecified abdominal hernia without obstruction or gangrene; E73.9 Lactose intolerance, unspecified; I10 Essential (primary) hypertension; M17.11 Unilateral primary osteoarthritis, right knee; N40.0 Benign prostatic hyperplasia without lower urinary tract symptoms | CPT/HCPCS: 87045; 87046; 87324; 87427; 87449 ==

== ENCOUNTER → 2025-06-17 09:30 | Outpatient (REF) | payer OTHER, MEDICARE, SELFPAY ==
[2025-06-17 10:00] LABS: Hematocrit 41.0 % (39.0-52.0); Hemoglobin 13.7 g/dL (13.0-18.0); Mean Corp Hgb Conc. 33.4 g/dL (33.0-37.0); Mean Corpuscular Volume 97.2 fL (80.0-94.0); Nucleated Red Blood Cells % 0 % (-); Platelet Count 301 10^3/uL (130-400); Red Cell Dist. Width 13.4 % (11.5-14.5)
[2025-06-17 10:11] LABS: Blood Urea Nitrogen 22 mg/dl (9-20); Calcium 9.0 mg/dl (8.4-10.2); Carbon Dioxide 27 mmol/L (22-30); Chloride 105 mmol/L (98-107); Glucose 100 mg/dl (70-99); Potassium 4.0 mmol/L (3.5-5.1); Sodium 135 mmol/L (135-145); eGFR > 60.00
== END ==
LOC: OLABP 09:30
PROVIDERS: ATTENDING PHYSICIAN Family Medicine
DX: M25.361 Other instability, right knee (principal); R26.2 Difficulty in walking, not elsewhere classified; K46.9 Unspecified abdominal hernia without obstruction or gangrene; E73.9 Lactose intolerance, unspecified; I10 Essential (primary) hypertension; M17.11 Unilateral primary osteoarthritis, right knee; N40.0 Benign prostatic hyperplasia without lower urinary tract symptoms
CPT/HCPCS: 36415; 80048; 85025